=== PATIENT | male | born 1990 | race Caucasian/White ===

== ENCOUNTER 2017-03-30 13:00 | Emergency (ER) | payer SELFPAY ==
[~2017-03-30] VITALS: Ht 170.2 cm; Wt 66.0 kg
[~2017-03-30 13:00] MED LIST: ACYCLOVIR800 MG PO
[2017-03-30] MEDS ORDERED: ERYTHROMYC1 APPLICAT RIGHT EYE (14:30)
[2017-03-30 14:52] VITALS: BP 133/81
== END 2017-03-30 14:53 | disposition home or self-care (01) ==
LOC: EME 13:00
PROC: 08CNXZZ Extirpation of Matter from Right Upper Eyelid, External Approach (ICD-10-PCS; principal; 2017-03-30)
DX: S05.01XA Injury of conjunctiva and corneal abrasion without foreign body, right eye, initial encounter (principal); Y99.0 Civilian activity done for income or pay; X58.XXXA Exposure to other specified factors, initial encounter; F17.210 Nicotine dependence, cigarettes, uncomplicated; Z71.6 Tobacco abuse counseling; Z88.1 Allergy status to other antibiotic agents
CPT/HCPCS: 99281; 99284

== ENCOUNTER 2017-08-25 16:25 | Emergency (ER) | payer OTHER ==
[~2017-08-25] VITALS: Ht 167.6 cm; Wt 70.6 kg
[~2017-08-25 16:25] MED LIST changes: +ERYTHROMYC1 APPLICAT RIGHT EYE
[2017-08-25 16:37] VITALS: BP 158/79
[2017-08-25] MEDS ORDERED: PREDNISONE50 MG PO (19:31)
[2017-08-25] MEDS ORDERED: MOTRIN800 MG PO (19:31)
== END 2017-08-25 19:49 | disposition home or self-care (01) ==
LOC: EME 16:25
DX: M77.12 Lateral epicondylitis, left elbow (principal); M77.11 Lateral epicondylitis, right elbow; F17.200 Nicotine dependence, unspecified, uncomplicated; Z88.0 Allergy status to penicillin
CPT/HCPCS: 99281; 99284; J7512